=== PATIENT | male | born 1960 | race Caucasian/White ===

== ENCOUNTER → 2016-08-23 | Outpatient (CLI) | payer BC ==
--- NOTE | 2016-08-23 14:52 | DI ---
Indication: ITS.REASON: M79.671 PAIN IN RIGHT FOOT PROCEDURE: FOOT RIGHT 3 VIEWS: Encounter: Initial Comparison: None Findings: There is no acute fracture, dislocation or malalignment identified. Mild degenerative change at the first metatarsophalangeal joint with formation of small osteophytes. Minimal degenerative change at the IP joint of the great toe. The remaining joint spaces are maintained. Bipartite medial sesamoid bone noted incidentally. No osseous erosions. Impression: No acute osseous abnormality. Mild degenerative change at the first metatarsophalangeal joint. .
== END ==
LOC: IMA 13:35
PROVIDERS: ATTEND Family Medicine
DX: M19.071 Primary osteoarthritis, right ankle and foot (principal); M79.671 Pain in right foot